=== PATIENT | female | born 1940 | race Caucasian/White ===

== ENCOUNTER 2025-04-05 06:04 | Day surgery (SDC) | payer OTHER, SELFPAY ==
--- NOTE | 2025-03-22 08:46 | VNURNOTE ---
Chart reviewed. Per Ortho documentation, pt will be admitted morning of surgery. HH services requested post op. [facility] referral placed in [facility]. Will follow up post-op.
[2025-03-23 13:50] VITALS: BMI 23.6
[2025-03-23 14:25] LABS: Hematocrit 39.7 % (37.0-47.0); Hemoglobin 13.0 g/dL (12.0-16.0); Mean Corp Hgb Conc. 32.7 g/dL (33.0-37.0); Mean Corpuscular Volume 90.8 fL (81.0-99.0); Platelet Count 279 10^3/uL (130-400); Red Cell Dist. Width 13.0 % (11.5-14.5)
[2025-03-23 15:28] LABS: ALT (SGPT) 18 U/L (0-35); AST (SGOT) 25 U/L (14-36); Albumin 4.0 g/dl (3.5-5.0); Alkaline Phosphatase 53 U/L (38-126); Blood Urea Nitrogen 15 mg/dl (7-17); Calcium 8.9 mg/dl (8.4-10.2); Carbon Dioxide 28 mmol/L (22-30); Chloride 104 mmol/L (98-107); Estimated Creatinine Clearance 45 ml/min; Glucose 120 mg/dl (70-99); Potassium 4.2 mmol/L (3.5-5.1); Sodium 136 mmol/L (135-145); Total Protein 6.1 g/dl (6.3-8.2); eGFR > 60.00
[2025-03-24 10:25] LABS: Glycohemoglobin (HgbA1c) 5.2 % (4.0-5.9)
[2025-03-28 10:40] VITALS: BMI 23.6
--- NOTE | 2025-03-29 10:05 | CM ---
CM reviewed medical records. Patient lives independently. Patient's daughter will provide transportation and supervision. Patient has confirmed that she made her appointments for PT with [facility].
Patient confirmed that she is SDS and would like to go home the same day.
PLAN: Home with VN.
--- NOTE | 2025-03-29 11:55 | VNURNOTE ---
Confirmed that pt is Same Day Surgery 04/[address] Jessica SALINAS.
Spoke with patient prior to surgery. Introduced role of [facility] Liaison.
Discussed [facility] joint protocol and post surgical plans.
Reviewed that she will have VN services initially and will then start outpatient PT.
Patient selects [facility] for home care needs and will go to [facility] for outpatient PT. Scheduled for 04/10 .
Patient is in agreement with plan and states that her daughter will be home with her. Advised to bring RW with her day of surgery. Referral updated in [facility].
Plan: [facility] per [facility] joint protocol 04/05 then outpt PT on 04/10
[2025-04-05] VITALS (11 sets, daily range): BP systolic 139–186; BP diastolic 49–105
[2025-04-05] MEDS: TYLENOL 650 MG PO ×2 (06:59→12:03)
[2025-04-05] MEDS: CELEBREX 200 MG PO (06:59)
[2025-04-05] MEDS: BACTROBAN NASAL 1 GRAM NASAL (07:06)
[2025-04-05] MEDS: NORMOSOL-R/PLASMALYTE-A 1000 IV (07:19)
[2025-04-05] MEDS: MORPHINE SULFATE 1 MG IV (10:29)
[2025-04-05] MEDS: ANCEF 5 IV (11:59)
--- NOTE | 2025-04-05 18:23 | OR.RPT ---
Operative Report
Operative Report
Orthopaedic Surgery Operative Note
DATE OF OPERATION: 04/05/2025
PREOPERATIVE DIAGNOSES: Left hip osteoarthritis
POSTOPERATIVE DIAGNOSES: Same
OPERATION PERFORMED: Left total hip arthroplasty.
SURGEON: Alessandro Lopez MD
AUTOMATION ENGINEER: Roshan Bryson who helped with patient and limb positioning and retraction
ANESTHESIA: Spinal
COMPLICATIONS: None.
ESTIMATED BLOOD LOSS: 50 mL.
DRAINS: None
SPECIMEN: None
FINDINGS: Full thickness degenerative changes to the femoral head
IMPLANTS:
Biomet G7 Acetabular Shell, cluster hole, size 50
Biomet G7 Highly Crosslinked PE Liner, neutral
[employer] stem, size 12 with standard offset with distal centralizer
DJO bone cement; small cement restrictor
Biolox Ceramic Head, size 36mm +0
INDICATIONS: The patient presented to my office with debilitating left hip pain due to osteoarthritis. We reviewed the natural history of this problem, as well as the risks, benefits, and alternatives of various treatment options. The patient
exhausted all nonoperative treatment options and wished to proceed with hip replacement surgery. The patient understood the risks which included, but were not limited to, bleeding, infection, failure to relieve pain, more pain than preop, damage to
blood vessels and nerves, need for reoperation, mechanical failure of the implants, wound healing problems, stiffness, instability, blood clot, pulmonary embolism, myocardial infarction, pneumonia, arrhythmia, CVA, and . The patient accepted
these risks and wished to proceed. All questions were answered, and informed consent was obtained.
PROCEDURE IN DETAIL: The patient was identified in the preoperative holding area. The left hip was identified as the operative site. The patient was taken in the operating room and transferred to the operative table. Spinal anesthesia was
performed. IV antibiotics and tranexamic acid were administered. The patient was placed in the lateral position with Stulberg hip positioners. Axillary roll was placed. The down leg was well padded. All bony prominences were well padded. The
operative limb was prepped and draped in the usual sterile fashion.
Time out was performed. A posterolateral approach to the hip was used. The skin incision was centered over the greater trochanter. This was taken down sharply through subcutaneous tissues. Meticulous hemostasis was achieved throughout the case with
electrocautery. We split the fascia marlyn in line with skin incision. I split the gluteus alda bluntly. We cauterized all crossing vessels as we split it. I palpated the sciatic nerve and made sure it was well posterior in the operative field. It
was protected throughout the case.
I performed a partial bursectomy to identify the short external rotators. The gluteus medius and minimus were identified and retracted anteriorly. I incised the piriformis tendon and conjoint tendon at their insertions. These were tagged for later
repair. I then performed a trapezoidal capsulotomy. The edges were tagged for later repair. I referenced the cut edge of the capsular flap to 2 fixed points on the greater trochanter for assistance with recreation of limb length and offset. I then
dislocated the hip posteriorly. I performed a femoral neck osteotomy approximately 10 mm above the lesser trochanter, as per preoperative templating. The femoral head measured 45 mm in outer diameter. The distance between the neck cut and the center
of the femoral head was measured to be 32.5mm. I placed a curve hohmann retractor over the anterior lip of the acetabulum between the labrum and the anterior hip capsule. A second retractor was placed inferiorly just distal to the transverse
acetabular ligament. Circumferential view of the acetabulum was achieved. I incised the labrum and pulvinar with electrocautery. I started with a 45 mm reamer and reamed down to the medial wall. I then sequentially reamed up to a 49mm reamer. This
gave a nice bed of bleeding bone with excellent column support anteriorly and posteriorly. I impacted the acetabular shell in approximately 40 degrees of abduction and 20 degrees of anteversion. I matched the anteversion of the transverse acetabular
ligament. I also made sure that the anterior rim of the socket was not proud of the anterior wall to minimize the chance of iliopsoas tendinitis. I confirmed the cup was well-seated. I then impacted a neutral liner and confirmed it was well seated
with the locking mechanism.
Attention was turned to the femur. Box osteotome and Charnley awe were used to open the canal. The femur was sequentially broached to size 12 which had appropriate fit and fill. A trial head was placed with standard offset neck and the hip was
reduced. Leg length and offset were checked and found to be appropriate. The hip was taken through complete range of motion and found to be stable in extension, the position of sleep, and at 90 degrees of flexion and internal rotation. Distance from
the femoral head to neck cut was 35mm.
Trials were removed and the femoral canal was prepared with irrigation and ribbon gauze packing sequentially. A cement restrictor was placed into the femoral canal 1cm distal to the tip of the femoral stem. This was measured off the trial femoral
stem. Once the femoral canal was prepared, the cement was mixed. Once doughy in consistency, the cement was pressurized into the canal with a cement gun. The stem was then carefully inserted into the canal with care to minimize rotation or
micromotion. Excess cement was removed. Once the cement was polymerized, the joint was irrigated copiously. The acetabular component was inspected to be free of cement particles and other debris. The final head was impacted onto clean and dry
trunion. Leg length and stability were checked again and found to be acceptable. The sciatic nerve was inspected and noted to be free of tension and uninjured.
A dilute betadine soak was performed for approximately 3 minutes, and then the hip was copiously irrigated. I repaired the capsule, piriformis, and conjoint tendon with #2 Ethibond to drill holes in the greater trochanter. Local anesthetic was
injected. The fascia marlyn was closed with #1 PDS in running fashion. The subcutaneous tissues were closed with 2-0 monofilament in running fashion. The skin was reapproximated with 3-0 monofilament subcuticular suture. I placed a skin glue dressing
followed by a Mepilex Ag dressing. The patient awoke from anesthesia without difficulty. Sponge and instrument counts were correct x2 at the end of the case. Leg lengths were checked on the hospital bed and noted to be equal. I was present and
participated in the entire procedure. The patient was sent to the recovery room in stable condition.
Cole Lopez MD
== END 2025-04-05 13:25 | disposition home health service (06) ==
LOC: SDS 06:04
PROVIDERS: ATTENDING PHYSICIAN Orthopaedic Surgery; FAMILY PHYSICIAN Internal Medicine
DX: M16.12 Unilateral primary osteoarthritis, left hip (principal)
CPT/HCPCS: 27130; 36415; 73502; 80053; 83036; 85027; 87070; 93005; 97162; 97530; C1713; C1776